=== PATIENT | female | born 2005 | race Caucasian/White ===

== ENCOUNTER 2025-08-26 10:00 | Inpatient (IN) | payer BC, MEDICAID, SELFPAY ==
[2025-08-26] VITALS (48 sets, daily range): BP systolic 97–132; BP diastolic 69–87; PULSE 86–126; RESP 16; TEMP 36.7; O2SAT 96–100
--- NOTE | 2025-08-26 11:26 | PM.IMHP ---
H&P: HPI History of Present Illness Date/Time: 08/26/25 11:26 Chief Complaint: Intrauterine at term Narrative: 19 yo G1 who presents at 40w0d for IOL. Review of Systems Cardiovascular: Cardiovascular: Denies chest pain, Denies leg edema, Denies palpitations, Denies dyspnea and Denies dyspnea on exertion Respiratory: Respiratory: Denies cough, Denies dyspnea and Denies dyspnea on exertion Gastrointestinal: Gastrointestinal: Denies abdominal pain, Denies constipation, Denies diarrhea, Denies nausea and Denies vomiting Genitourinary: Genitourinary: Denies hematuria, Denies urinary frequency, Denies dysuria, Denies pelvic pain, Denies urinary incontinence and Denies vaginal discharge Neurologic: Reports system reviewed and no additional complaints, except as documented Psychiatric: Psychiatric: Reports no additional psychiatric complaints Endocrine: Endocrine: Denies palpitations PMFSH Past Medical History Medical History Purulent drainage of both ears through ear tube Anxiety and depression Family History Family History Mother Cervical cancer Social History Social History Smoking status: Former smoker Tobacco type: cigarettes Second hand tobacco smoke exposure: No Smoking end date: 07/16/25 Alcohol intake: never Substance use: former Substance use type: marijuana Last use: 06/15/2025 Do You Feel Safe in your Home?: Yes Lack of Transportation: No Lack of Food: Never True Current Housing: Decline to Answer Concerned About Future Housing: No Difficulty Paying Gas/Electric Bills: Decline to Answer Difficulty Paying for Meds: No Currently Unemployed: Decline to Answer Education: High School Diploma/GED Difficulty w/ Childcare or Family Care: No Living arrangements: other Additional living arrangements comments: single in relationship Occupation/Education: unemployed Gender identity (if verbalized by the patient): Female Sexual Orientation (if Verbalized by the Patient): Straight or Heterosexual Spiritual care concerns: No Meds Home Medications and Allergies Home Medications ?Medication ?Instructions ?Recorded ?Confirmed ?Type cetirizine 10 mg capsule (Zyrtec) 10 mg PO DAILY PRN allergy symptoms 07/21/25 08/11/25 History mv-mn 115-folic 180 mcg-om3 35 tablet PO 07/21/25 08/11/25 History mg-dha 25 mg-epa 5 mg-fish chew tablet (Centrum ) ferrous sulfate 325 mg (65 mg 325 mg PO DAILY 08/11/25 08/11/25 History iron) tablet Allergies Allergy/AdvReac Type Severity Reaction Status Date / Time red dye Allergy Unknown Unknown Verified 08/18/25 13:47 Sulfa (Sulfonamide Allergy Unknown Unknown Verified 08/18/25 13:47 Antibiotics) amoxicillin AdvReac Severe Anaphylaxis Verified 08/18/25 13:47 Penicillins AdvReac Severe Anaphylaxis Verified 08/18/25 13:47 Vital Signs Vital Signs - 24 hr 08/26/25 11:00 08/26/25 11:15 Pulse Rate 114 H 100 Blood Pressure 118/79 121/79 Exam Const: General: no acute distress Eyes: EOM: EOMs intact bilaterally Neck: Neck: supple Thyroid: thyroid normal Chest: Breast/axilla inspection: normal inspection of the breasts Breast/axilla palpation: normal palpation of the breasts, normal palpation of the axillae and no axillary lymphadenopathy Resp: Effort & Inspection: normal respiratory effort Auscultation: clear to auscultation bilaterally Cardio: Rate: regular rate Rhythm: regular rhythm GI: Inspection: non-distended and other (Gravid) GI Palp: Yes Soft to palpation, No Tenderness to palpation present (GI) and No Guarding due to palpation present (GI) Auscultation: normal bowel sounds : Speculum Exam - Vagina: No vaginal bleeding OB/external & speculum: external exam normal; No vaginal bleeding Skin: General skin exam: normal color and no rashes or lesions noted Neuro: Cognition (Neuro): normal cognition Speech: normal speech Extrem: General: normal to inspection Psych: Mental Status: mental status grossly normal Affect: normal affect Assessment and Plan Assessment and plan (1) : Code(s): Z34.90 - Encounter for supervision of normal , unspecified, unspecified trimester Status: Acute Assessment and Plan: 19-year-old who presents at 40 weeks 0 days for induction of labor Admit to L&D Routine admission orders labs reviewed Rh positive GBS negative complicated by late transfer of care Also complicated by tobacco use in
[2025-08-26 18:02] LABS: Hematocrit 33.8 % (37.0-47.0); Hemoglobin 11.3 g/dL (12.0-15.0); Immature Granulocyte Percent A 1.5 % (0-0.5); Lymphocytes Absolute Auto 1.91 K/mm3 (0.9-3.2); Mean Corpuscular HGB Conc 33.4 g/dl (32-36); Mean Corpuscular Hemoglobin 30.6 pg (26-34); Mean Corpuscular Volume 91.6 fl (80-100); Nucleated Red Blood Cells Absolute Auto 0.000 K/mm3 (0.0-0.012); Nucleated Red Blood Cells Perc 0.0 % (0.0-0.2); Platelet Count Result 275 k/mm3 (150-375); Red Blood Count 3.69 M/mm3 (4.2-5.4); White Blood Count 10.7 K/mm3 (4.5-10.0)
[2025-08-26 18:46] LABS: Syphilis IgG/IgM Antibody Non-Reactive (Nonreactive)
[2025-08-26 18:48] LABS: HIV 1/2 Ab P24 Ag Result Negative (Negative)
[2025-08-26 18:53] LABS: Hepatitis B Surface Antigen Negative (Negative)
--- NOTE | 2025-08-26 19:04 | LDADM ---
This patient, April Odonnell, was admitted to Labor/Delivery/Recovery 109 on 08/26/25 at 10:00. Plans for labor, pain management and were discussed with patient. Patient/family oriented to hospital policies and general routines including ID bracelet, bed and alarms, visiting hours, pain management, procedures, bathroom and other care routines, personal items, smoking policy, room service/diet and guest tray routines, security routines, and visiting hours. Patient/Family are encouraged to report perceived risks to care and to ask questions if they do not understand what they are told or what they should do. See OBIX for further documentation.
[2025-08-26] MEDS: OXYTOCIN 30 UNITS/NS 500 ML 30 UNITS/500 ML BAG 6 UNITS IV CONT (20:52)
[2025-08-26] MEDS: LACTATED RINGERS 1,000 ML 125 ML IV CONT (20:52)
[2025-08-27] VITALS (206 sets, daily range): BP systolic 101–142; BP diastolic 62–97; PULSE 38–248; RESP 17–28; TEMP 36.6–37.4; O2SAT 79–100
[2025-08-27] MEDS: LACTATED RINGERS 1,000 ML 125 ML IV CONT ×2 (04:52→10:44)
[2025-08-27] MEDS: fentaNYL CITRATE INJ (*CRX) 100 MCG/2 ML VIAL IV PUSH (12:13)
--- NOTE | 2025-08-27 13:22 | P.PCNOB_ITS ---
OB - Vaginal Delivery Note Procedure Delivery date: 08/27/25 Induction method: Per Cervidil Protocol Delivery augmentation: Rupture of Membranes and Pitocin Delivery monitor: External FHT and Internal Uterine Route of delivery: Episiotomy description: None Laceration Description: None and Superficial Specimen: No Quantitative Blood Loss (ml): 250 Anesthesia type: None Disposition: Floor Complications: No immediate complications Narrative: Patient pushed for a spontaneous vaginal delivery. The fetus was delivered atraumatically and placed on the maternal abdomen. The cord was clamped and cut after 1 minute of life. The cord was double clamped and cut and a segment of cord was collected for cord gases. Cord blood was collected for blood type and Coomb's testing. The placenta delivered spontaneously and was noted to be intact. The perineum was inspected and noted to be intact. There were bilateral superficial labial lacerations that were hemostatic. There was a steady trickle of blood from the uterus despite bimanual massage. Patient was given 1000mcg misoprostol NV. Bleeding decreased with continued massage. The mom and were stable in the delivery room. [place] Baby Date of : 08/27/25 Time of : 13:09 Gestational Age by Date: 40 presentation: vertex position: Right Occiput Anterior Placenta delivery description: Spontaneous Cord Vessel Description: 3 Vessels score one minute: 8 score five minutes: 9
[2025-08-27] MEDS: OXYTOCIN 30 UNITS/NS 500 ML 30 UNITS/500 ML BAG 125 UNITS IV CONT (13:35)
[2025-08-27] MEDS: METHYLERGONOVINE MALEATE 0.2 MG/ML VIAL IM (13:47)
[2025-08-27] MEDS: IBUPROFEN 600 MG TABLET PO (15:22)
--- NOTE | 2025-08-27 16:26 | OBPPTRN ---
Patient transferred to post room # 278 via wheelchair. Oriented to unit, room, information board, rooming in, admission packet and security measures. Patient verbalizes understanding.
[2025-08-27] MEDS: BENZOCAINE 20% AER SPR (*SP) 56 GM CAN 1 SPRAY TOPICAL (23:00)
[2025-08-27] MEDS: WITCH HAZEL 40 PADS 1 PAD TOPICAL (23:00)
[2025-08-27] MEDS: ACETAMINOPHEN 325 MG TABLET 650 MG PO (23:28)
[2025-08-28 04:15] VITALS: BP 110/75; PULSE 99; RESP 17; TEMP 36.9; O2SAT 100
[2025-08-28 04:59] LABS: Hematocrit 23.7 % (37.0-47.0); Hemoglobin 7.5 g/dL (12.0-15.0)
[2025-08-28 08:10] VITALS: BP 101/69; PULSE 97; RESP 18; TEMP 36.9; O2SAT 100
[2025-08-28] MEDS: ACETAMINOPHEN 325 MG TABLET 650 MG PO ×2 (08:15→16:08)
[2025-08-28] MEDS: MULTIVIT/MIN/PREN/FOL AC/IRON TABLET 1 TAB PO (08:17)
[2025-08-28] MEDS: DOCUSATE SODIUM 100 MG CAPSULE PO ×2 (08:18→16:07)
--- NOTE | 2025-08-28 11:37 | PC.NURSE ---
1100. Met with patient to assess and discuss needs related to feeding. Mother states it is her intention to exclusively breastfeed. Encouraged mother to breastfeed infant 8-12 times in 24 hours (approximately every 2-3 hours), watching for early feeding cues. If is sleepy, unwrap and place baby skin to skin. Discussed signs that is effectively , i.e. sufficient voids and stools, jaundice within normal limits, <10% weight loss from . Mother educated on milk production, supply and demand, and expectations for in the immediate period. Encouraged feeding on demand and feeding durations of 15 minutes or greater. Discussed breast/nipple care with good hand hygiene, signs of a correct latch, listening for swallows and documenting feedings on the feeding sheet. Mother instructed to call for assistance if infant will not feed every 3 hours, if there is discomfort with , or if mother has any other questions or concerns. Zomee breast pump provided to mom per her request after she stated that she did not have a pump at home. Offered outpatient WIC referral. Mom verbalized the need for WIC and prefers [facility] [facility] location. Referral faxed. Discussed Services at [facility] after discharge. resources provided including the Mom and Baby Guide and name/number on communication board. Mother verbalized understanding. Updated patient?s primary RN with education provided.?
[2025-08-28 12:14] VITALS: BP 131/83; PULSE 97; RESP 18; TEMP 37.7; O2SAT 100
--- NOTE | 2025-08-28 13:01 | P.PNOB_ITS ---
OB - PN: Subj Subjective Date/time seen: 08/28/25 13:00 Narrative: PPD#1 Priscilla reports doing well today. 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 Her pain is controlled. She is tolerating regular diet, voiding, passing gas, and ambulating without issues. She is breast feeding. OB - PN: Obj Data Labs 08/28/25 04:17 Labs: Laboratory Results - last 24 hr 08/28/25 04:17 Hgb 7.5 L D Hct 23.7 L OB - PN A/P Assessment and Plan (1) Vaginal delivery: Code(s): O80 - Encounter for full-term uncomplicated delivery Status: Acute Plan day: 1 Plan: routine care Comments: - PO pain meds - Regular diet - Ambulation and hydration encouraged - Continue putting baby to breast q2-3hr - Anemia noted; venofer 500mg IV once; repeat CBC in the AM Time Spent With Patient Time: Total time spent is greater than 50% in coordination of care (as documented) at patient's floor/unit and/or counseling patient: Review of Systems 2 Constitutional: Constitutional: Denies chills, Denies fever(s) and Denies headache(s) Eyes: Eyes: Denies change in vision ENT: Denies dizziness and Denies headache(s) Cardiovascular: Cardiovascular: Denies chest pain, Denies palpitations and Denies dyspnea Respiratory: Respiratory: Denies cough and Denies dyspnea Gastrointestinal: Gastrointestinal: Denies nausea and Denies vomiting Neurologic: Denies dizziness and Denies headache(s) Endocrine: Endocrine: Denies palpitations Exam 2 Const: General: cooperative, comfortable and no acute distress O rientation/consciousness: patient oriented x3 Resp: Effort & Inspection: normal respiratory effort Auscultation: clear to auscultation bilaterally Cardio: Rate: regular rate GI: Inspection: non-distended GI Palp: No abdominal tenderness and Yes Soft to palpation Auscultation: normal bowel sounds : Other: fundus firm Skin: General skin exam: normal color Neuro: General: patient oriented x3 Extrem: General: normal to inspection Psych: Appearance: grossly normal Affect: normal affect Attitude: c ooperative
[2025-08-28] MEDS: IRON SUCROSE COMPLEX 400 MG, IRON SUCROSE COMPLEX 100 MG in SODIUM CHLORIDE 0.9% IV 250 ML 78.57 MG IVPB (14:52)
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
--- NOTE | 2025-08-28 17:53 | PCCCNOTE ---
viscosity worker completed an online DCFS report, viscosity worker will follow up with updates on case/report prior to patient/baby discharging.
[2025-08-28] MEDS: IBUPROFEN 600 MG TABLET PO (19:12)
[2025-08-28 19:20] VITALS: BP 112/80; PULSE 99; RESP 18; TEMP 36.7; O2SAT 99
--- NOTE | 2025-08-28 19:20 | PC.NURSE ---
Patient stated to this RN, Care coordination saw me today and I've changed my mind on where I'm going at discharge. I'm mending my relationship with my mom and I'm going to go live with her. Patient's mothers name is Donna Nicci Address: [address] [place] [id number]
[2025-08-29 05:37] LABS: Hematocrit 23.6 % (37.0-47.0); Hemoglobin 7.4 g/dL (12.0-15.0); Mean Corpuscular HGB Conc 31.4 g/dl (32-36); Mean Corpuscular Hemoglobin 30.3 pg (26-34); Mean Corpuscular Volume 96.7 fl (80-100); Platelet Count Result 235 k/mm3 (150-375); Red Blood Count 2.44 M/mm3 (4.2-5.4); White Blood Count 9.2 K/mm3 (4.5-10.0)
[2025-08-29] MEDS: MULTIVIT/MIN/PREN/FOL AC/IRON TABLET 1 TAB PO (09:04)
--- NOTE | 2025-08-29 09:11 | PM.OBDSVD ---
DS: Admitting Diagnosis Discharge Date 08/29/25 <Kat Martinez MD - Last Filed: 08/29/25 11:34> Admitting Diagnosis intrauterine at term <Panfilo Mcclain MD - Last Filed: 08/28/25 15:47> DS: Discharge Diagnosis Discharge Diagnosis (1) Vaginal delivery: Code(s): O80 - Encounter for full-term uncomplicated delivery <Panfilo Mcclain MD - Last Filed: 08/28/25 15:47> Status: Acute <Panfilo Mcclain MD - Last Filed: 08/28/25 15:47> OB - DS: Summary OB Procedures : None <Panfilo Mcclain MD - Last Filed: 08/28/25 15:47> Ultrasound <Kat Martinez MD - Last Filed: 08/29/25 11:34> OB Procedures Intrapartum: Spontaneous Vag Delivery <Panfilo Mcclain MD - Last Filed: 08/28/25 15:47> OB Procedures: : Other (iron transfusion ) <Panfilo Mcclain MD - Last Filed: 08/28/25 15:47> Peripartum Data Laceration Description: None and Superficial <Panfilo Mcclain MD - Last Filed: 08/28/25 15:47> Episiotomy description: None <Panfilo Mcclain MD - Last Filed: 08/28/25 15:47> complications: none <Kat Martinez MD - Last Filed: 08/29/25 11:34> 1: Gender: Male <Kat Martinez MD - Last Filed: 08/29/25 11:34> Disposition of : home <Kat Martinez MD - Last Filed: 08/29/25 11:34> Status at Discharge Functional status at discharge: independent ambulation <Panfilo Mcclain MD - Last Filed: 08/28/25 15:47> Overall status at discharge: patient is back to baseline <Panfilo Mcclain MD - Last Filed: 08/28/25 15:47> Time Spent with Patient Time attestation: Total time spent providing and/or coordinating discharge services: <Panfilo Mcclain MD - Last Filed: 08/28/25 15:47> Time spent: Less than 30 minutes <Panfilo Mcclain MD - Last Filed: 08/28/25 15:47> Exam Const: General: comfortable and no acute distress <Panfilo Mcclain MD - Last Filed: 08/28/25 15:47> General: obese <Kat Martinez MD - Last Filed: 08/29/25 11:34> Orientation/consciousness: patient oriented x3 <Kat Martinez MD - Last Filed: 08/29/25 11:34> Resp: Effort & Inspection: normal respiratory effort <Panfilo Mcclain MD - Last Filed: 08/28/25 15:47> Auscultation: clear to auscultation bilaterally <Panfilo Mcclain MD - Last Filed: 08/28/25 15:47> Cardio: Rate: regular rate <Panfilo Mcclain MD - Last Filed: 08/28/25 15:47> GI: Inspection: non-distended <Kat Martinez MD - Last Filed: 08/29/25 11:34> GI Palp: Yes Soft to palpation <Panfilo Mcclain MD - Last Filed: 08/28/25 15:47> Auscultation: normal bowel sounds <Panfilo Mcclain MD - Last Filed: 08/28/25 15:47> Other: Fundus firm below umbilicus <Panfilo Mcclain MD - Last Filed: 08/28/25 15:47> : Other: fundus firm <Kat Martinez MD - Last Filed: 08/29/25 11:34> Skin: General skin exam: normal color <Kat Martinez MD - Last Filed: 08/29/25 11:34> Neuro: General: patient oriented x3 <Kat Martienz MD - Last Filed: 08/29/25 11:34> Extrem: General: normal to inspection <Kat Martinez MD - Last Filed: 08/29/25 11:34> Psych: Appearance: grossly normal <Panfilo Mcclain MD - Last Filed: 08/28/25 15:47> Mental Status: mental status grossly normal <Panfilo Mcclain MD - Last Filed: 08/28/25 15:47> Affect: normal affect <Panfilo Mcclain MD - Last Filed: 08/28/25 15:47> Attitude: cooperative <Kat Martinez MD - Last Filed: 08/29/25 11:34> DS: Data Data Completed and Pending Labs on day of discharge: Labs from last 24 hours 08/26/25 17:33 WBC 10.7 H RBC 3.69 L Hgb 11.3 L Hct 33.8 L MCV 91.6 MCH 30.6 MCHC 33.4 RDW 13.2 Plt Count 275 MPV 9.9 Immature Gran % (Auto) 1.5 H Neut % (Auto) 74.1 H Lymph % (Auto) 17.8 L [place] % (Auto) 6.1 Eos % (Auto) 0.2 Baso % (Auto) 0.3 Lymph # (Auto) 1.91 [place] # (Auto) 0.7 H Eos # (Auto) 0.0 Baso # (Auto) 0.0 Abs Immat Gran (auto) 0.16 H Absolute Neuts (auto) 8.0 H Absolute Nucleated RBC 0.000 Nucleated RBC % 0.0 Syphilis IgG/IgM Ab Non-reactive Hep Bs Antigen Negative HIV 1&2 Ab/P24 Ag 4thGn Negative Rubella IgG Antibody 10.3 Blood Type O Positive Antibody Screen Negative <Pnafilo Mcclain MD - Last Filed: 08/28/25 15:47> Discharge Plan Discharge Attending physician on discharge: Kat Martinez <Panfilo Mcclain MD - Last Filed: 08/28/25 15:47> Kat Martinez <Kat Martinez MD - Last Filed: 08/29/25 11:34> Consulting providers: Panfilo Mcclain <Panfilo cMclain MD - Last Filed: 08/28/25 15:47> Discharging Clinician: Panfilo Mcclain <Panfilo Mcclain MD - Last Filed: 08/28/25 15:47> Panfilo Mcclain <Kat Martinez MD - Last Filed: 08/29/25 11:34> Patient Disposition: Home <Panfilo Mcclain MD - Last Filed: 08/28/25 15:47> Activity: as tolerated and pelvic rest <Panfilo Mcclain MD - Last Filed: 08/28/25 15:47> as tolerated and pelvic rest <Kat Martinez MD - Last Filed: 08/29/25 11:34> Diet: regular <Panfilo Mcclain MD - Last Filed: 08/28/25 15:47> regular <Kat Martinez MD - Last Filed: 08/29/25 11:34> Patient Instructions: Antibiotic Form, Vaginal Delivery (DC) <Panfilo Mcclain MD - Last Filed: 08/28/25 15:47> Patient Language: Divehi <Panfilo Mcclain MD - Last Filed: 08/28/25 15:47> Stand Alone Forms: General Discharge Information <Panfilo Mcclain MD - Last Filed: 08/28/25 15:47> Follow-up/Referrals: Panfilo Mcclain MD [Physician, NATIONAL ACCOUNT EXECUTIVE] <Panfilo Mcclain MD - Last Filed: 08/28/25 15:47> Discharge Medications: New docusate sodium 100 mg Capsule 100 mg PO BID PRN (Reason: Constipation) Qty: 90 0RF ibuprofen 600 mg Tablet 600 mg PO Q6H PRN (Reason: Cramping) Qty: 40 0RF acetaminophen 500 mg tablet 500 mg PO Q6H PRN (Reason: pain) Qty: 30 0RF ibuprofen 600 mg tablet 600 mg PO Q6H PRN (Reason: pain) Qty: 30 0RF Continued ferrous sulfate 325 mg (65 mg iron) tablet 325 mg PO DAILY Zyrtec 10 mg capsule 10 mg PO DAILY PRN (Reason: allergy symptoms) Centrum 180 mcg-35 mg- 25 mg-5 mg tablet,chewable PO <Panfilo Mcclain MD - Last Filed: 08/28/25 15:47> Date of admission: 08/26/25 10:00 <Panfilo Mcclain MD - Last Filed: 08/28/25 15:47> Primary Care Provider: UNKNOWN,DOCTOR <Panfilo Mcclain MD - Last Filed: 08/28/25 15:47> Admitting Provider: Norm Mosqueda <Panfilo Mcclain MD - Last Filed: 08/28/25 15:47> Attending physician on admission: Norm Mosqueda <Panfilo Mcclain MD - Last Filed: 08/28/25 15:47> Condition: Stable <Panfilo Mcclain MD - Last Filed: 08/28/25 15:47>
[2025-08-29 09:47] VITALS: BP 113/77; PULSE 90; RESP 14; TEMP 36.8; O2SAT 99
--- NOTE | 2025-08-29 10:50 | PC.NURSE ---
Mother verbalizes she is able to independently latch with appropriate positioning and alignment. She has some nipple discomfort and is using a nipple shield (sometimes) and pumping. Infant is currently meeting outcomes for weight, output, jaundice, blood sugar and feeding frequencies of 8-12 times in 24 hours. Mother declines any additional assistance or education at this time. Mother is encouraged to call for assistance if her doesn?t latch, pain with latching, questions or concerns. Strongly encouraged patient to use the Office for additional help as needed. Her WIC form was faxed to the [facility] office and she received a Zomee breast pump through insurance prior to discharge. Mother voiced understanding of information shared along with the mom/baby guide for an additional resource. Reported to the Primary RN.
--- NOTE | 2025-08-29 13:09 | PC.NURSE ---
0916- This RN received a call from Linda in care coordination, states that pt and baby will be going to stay with pts mother in [place] and that pt and are cleared to go with her at time of discharge. DCFS will not be involved in the discharge process.
--- NOTE | 2025-08-29 15:32 | PCCCNOTE ---
Met with pt. and spoke with pt's mother Donna Lovett [phone] via telephone. Pt. reports her discharge plan has changed, and states she and baby will be living with her mother Donna at [address] [address]. Donna confirms this and states able to pick pt. and baby up today if discharged. Donna confirms has a car seat for baby. Donna reports she has gathered some baby supplies for the time being, until they can coordinate to obtain the baby supplies from Melissa's home in [place]. Donna reports pt's grandmother has obtained a bassinet for baby to sleep in at Donna's home. Donna reassures able to assist pt. with baby and states she works for home so will be available for pt. and baby 07/05. Donna and pt. deny further needs. Prior to pt. changing her [facility] plan[facility] [phone] had contacted to obtain additional information, due to [facility] hotline report made yesterday evening. See previous note for all details. Spoke with Akilah today and she is aware of change in discharge plan. As Akilah requested, [place] address provided to her. Akilah reports will close this [place] case. No further safety concerns and nothing to report to [facility] at this time. GAMA Landaverde aware and confirms pt. and baby are being discharged today.
[2025-08-31 08:07] VITALS: BP 103/69; PULSE 106; RESP 20; TEMP 36.8; O2SAT 100
== END 2025-08-29 14:09 | disposition home or self-care (01) | DRG 807 ==
LOC: ANHOB2 09-01 08:17 → ANHLDR 09-01 08:17
PROVIDERS: Admitting Provider Student in an Organized Health Care Education/Training Program; Visit Provider Obstetrics & Gynecology
DX: O99.02 Anemia complicating childbirth (principal); Z37.0 Single live birth; Z3A.40 40 weeks gestation of pregnancy; D64.9 Anemia, unspecified; O99.334 Smoking (tobacco) complicating childbirth; F17.210 Nicotine dependence, cigarettes, uncomplicated; O70.0 First degree perineal laceration during delivery
CPT/HCPCS: 36415; 85014; 85018; 85025; 85027; 86593; 86703; 86762; 86850; 86900; 86901; 87340; A9270; G0432; J1756; J2210; J2590; J2795; J3010; J7050; J7120